=== PATIENT | female | born 1965 | race Caucasian/White ===

== ENCOUNTER 2017-03-31 10:12 | Emergency (ER) | payer MEDICAID, OTHER ==
[~2017-03-31] VITALS: Ht 167.6 cm; Wt 68.0 kg
[~2017-03-31 10:12] MED LIST: ASPI81CH CHEW; ATOR40TA16 PO; CARV12.52 PO; DILT120T PO; LATA0.002 EACH EYE; LEVE500 PO; LORA1TAB12 PO; MELO-1 PO; MORP1CAP81 PO; SERT-129 PO; ZOLP5TAB3 PO
[2017-03-31 10:31] VITALS: BP 176/79; PULSE 102; RESP 16; TEMP 98.7; O2SAT 100
[2017-03-31 10:34] VITALS: BP 176/79; PULSE 96; RESP 21; O2SAT 100
[2017-03-31] MEDS ORDERED: GABA800T PO (10:42)
[2017-03-31 11:59] VITALS: BP 192/86; PULSE 89; RESP 16; O2SAT 100
--- NOTE | 2017-03-31 12:20 | RADRPT ---
EXAM DATE/TIME: 03/31/2017 11:21 [place] COMPARISON: No previous studies available for comparison. INDICATIONS : Left leg edema. MEDICAL HISTORY : Hypercholesterolemia. CVA. Seizures. HTN. SURGICAL HISTORY : Hysterectomy. Nephrectomy, left. Right eye lasik. Back x2. ENCOUNTER: Initial ACUITY: 1 week PAIN SCORE: 4/10 LOCATION: Left leg. TECHNIQUE: Venous ultrasound of the leg was performed from the inguinal ligament to the proximal calf. Real-andi e, color Doppler and spectral tracing, compression and augmentation techniques were used. FINDINGS: There is normal compressibility of the deep venous system from the inguinal region to the proximal ca lf. No echogenic clot is seen in the lumen of the common femoral, femoral, popliteal, and posterior tibial veins. There is a normal response of the venous system to proximal and distal augmentation an d respiration. CONCLUSION: No evidence of left lower extremity DVT. Ryan Griggs MD on March 31, 2017 at 12:18 Board Certified Radiologist. This report was verified electronically.
--- NOTE | 2017-03-31 12:37 | PD ---
Physical Exam Narrative Patient is a 52 year old female transferred from [place] ED for a doppler ultrasound. Please the the original documentation by Dr. Hernandez for complete history and physical details. Briefly, patient is complaining of left calf pain. She says she was admitted at [facility] for 2 weeks for gastroenteritis. She says she has had the pain , which she describes as a cramping pain, since Saturday. Exam shows no edema of the leg. Calf is nontender to palpation. Pedal pulses are intact. She was given pain medicine in [place]. Data Data Last Documented VS Vital Signs Date Time Temp Pulse Resp B/P Pulse Ox O2 Delivery O2 Flow Rate FiO2 03/31/17 15:12 92 18 227/100 99 Room Air 03/31/17 10:31 98.7 Orders Us Leg Venous Doppler (03/31/17 ) Acetaminophen (Tylenol) (03/31/17 12:45) Carvedilol (Coreg) (03/31/17 15:15) Diltiazem (Cardizem) (03/31/17 15:15) MDM Supervised Visit with ANUPAMA: No Narrative Course D-dimer was elevated, so patient was transferred for a doppler to rule out DVT. Doppler ultrasound performed and shows no evidence of DVT. Patient informed of the results. She states she would like to see physical therapy. I advised her to speak with her PCP about this. Patient advised to drink plenty of fluids and take Ibuprofen for pain. Advised to return to the ED as needed for any worsening symptoms. Diagnosis Primary Impression: Muscle spasm of left lower extremity Patient Instructions: General Instructions, Leg Pain (ED) Additional Instruction: Take Tylenol or Ibuprofen as needed for pain. Drink plenty of fluids. Follow up with your doctor. Return to the ED as needed for any worsening symptoms . Disposition: DISCHARGE HOME Condition: Stable Mariangel Leon MD Mar 31, 2017 12:37
[2017-03-31] MEDS ORDERED: ACETAMINOPHEN 325 MG TAB PO ONE (12:45)
[2017-03-31 15:12] VITALS: BP 227/100; PULSE 92; RESP 18; O2SAT 99
[2017-03-31] MEDS ORDERED: DILTIAZEM HCL 60 MG TAB PO ONE (15:15)
[2017-03-31] MEDS ORDERED: CARVEDILOL 12.5 MG TAB PO ONE (15:15)
--- NOTE | 2017-05-28 15:18 | PD ---
HPI Chief Complaint: Pain: Acute or Chronic Time Seen by Provider: 10:22 Travel History International Travel<30 days: No Contact w/Intl Traveler<30days: No Traveled to known affect area: No History of Present Illness HPI Patient is a 52-year-old female comes in complaining of left leg pain. She says it has been going on since she was previously hospitalized at an outside facility. She was originally seen until tone and was sent here for a Doppler to rule out a DVT. She denies any chest pain or shortness of breath. PFSH Past Medical History Cardiovascular Problems: Yes (HTN) High Cholesterol: Yes Cerebrovascular Accident: Yes Diminished Hearing: No Hypertension: Yes Seizures: Yes Influenza Vaccination: Yes ?: Not Past Surgical History Eye Surgery: Yes (LASIK RIGHT EYE) Hysterectomy: Yes Other Surgery: Yes (LEFT NEPHRECTOMY ) Social History Alcohol Use: No (RECOVERING ALCOHOLIC) Tobacco Use: No Substance Use: No Allergies-Medications (Allergen,Severity, Reaction): Coded Allergies: Penicillin (Verified Allergy, Severe, ANAPHYLAXIS, 03/31/17) Clindamycin (Verified Allergy, Intermediate, N/V, 03/31/17) Latex (Verified Allergy, Intermediate, BURNING SKIN, 03/31/17) Sulfa (Verified Allergy, Intermediate, HIVES, 03/31/17) Reported Meds & Prescriptions Reported Meds & Active Scripts Active Reported Gabapentin 800 Mg Tab 800 Mg PO TID Latanoprost Opth Drops (Latanoprost) 0.005% Drops 1 Drop EACH EYE HS Refrigerate until opened. Meloxicam 15 Mg Tab 15 Mg PO DAILY Lorazepam 1 Mg Tab 1 Mg PO Q8H PRN Zolpidem (Zolpidem Tartrate) 5 Mg Tab 5 Mg PO HS PRN Embeda (Morphine-Naltrexone ER) 50-2 Mg Caper 1 Cap PO DAILY Sertraline (Sertraline HCl) 100 Mg Tab 100 Mg PO DAILY Keppra (Levetiracetam) 500 Mg Tab 500 Mg PO BID Diltiazem (Diltiazem HCl) 120 Mg Tab 120 Mg PO DAILY Carvedilol 12.5 Mg Tab 12.5 Mg PO BID Atorvastatin (Atorvastatin Calcium) 40 Mg Tab 40 Mg PO HS Aspirin 81 Mg Chew 81 Mg CHEW DAILY Review of Systems Except as stated in HPI: all other systems reviewed are Neg General / Constitutional: No: Fever, Chills HENT: No: Headaches, Lightheadedness Cardiovascular: No: Chest Pain or Discomfort Respiratory: No: Shortness of Breath Gastrointestinal: No: Nausea, Vomiting Musculoskeletal: Positive: Myalgias, Pain Skin: No Rash, No Change in Pigmentation Physical Exam Narrative GENERAL: [Awake and alert, in no acute distress. SKIN: Focused skin assessment warm/dry. HEAD: Atraumatic. Normocephalic. EYES: Pupils equal and round. No scleral icterus. ENT: Mucous membranes pink and moist. NECK: Trachea midline. No JVD. CARDIOVASCULAR: Regular rate and rhythm. No murmur appreciated. RESPIRATORY: No accessory muscle use. Clear to auscultation. Breath sounds equal bilaterally. MUSCULOSKELETAL: No obvious deformities. No clubbing. No cyanosis. No edema. No calf tenderness. Full range of motion of her left leg. Pedal pulses intact. NEUROLOGICAL: Awake and alert. No obvious cranial nerve deficits. Motor grossly within normal limits. Normal speech. PSYCHIATRIC: Appropriate mood and affect; insight and judgment normal. Data Data Orders Us Leg Venous Doppler (03/31/17 ) Acetaminophen (Tylenol) (03/31/17 12:45) Carvedilol (Coreg) (03/31/17 15:15) Diltiazem (Cardizem) (03/31/17 15:15) MDM Medical Decision Making Medical Screen Exam Complete: Yes Emergency Medical Condition: Yes Medical Record Reviewed: Yes Differential Diagnosis Muscle spasm versus muscle cramping versus DVT Narrative Course Patient is a 52-year-old female comes in with a left leg pain. She was originally seen in [facility] and was sent for Doppler ultrasound to rule out DVT. Exam shows no acute abnormalities. Doppler performed shows no evidence of DVT. Patient was discharged home to follow-up with her doctors. Diagnosis Primary Impression: Muscle spasm of left lower extremity Patient Instructions: General Instructions, Leg Pain (ED) Departure Forms: Tests/Procedures Additional Instructions: Take Tylenol or Ibuprofen as needed for pain. Drink plenty of fluids. Follow up with your doctor. Return to the ED as needed for any worsening symptoms . Disposition: 01 DISCHARGE HOME Condition: Stable Mariangel Leon MD May 28, 2017 15:18
== END 2017-03-31 16:50 | disposition home or self-care (01) ==
LOC: NEPE 10:12
DX: M62.831 Muscle spasm of calf (principal)
CPT/HCPCS: 80053; 82550; 83735; 85025; 85379; 85610; 85730; 93971; 96360; J7040